=== PATIENT | male | born 1955 | race Caucasian/White ===

== ENCOUNTER 2021-11-17 19:41 | Inpatient (IN) | payer MEDICARE, OTHER ==
[~2021-11-17] VITALS: Ht 172.7 cm; Wt 85.9 kg
[~2021-11-17 19:41] MED LIST: ASP325T PO; NAPR-243 PO; SULF1TAB38 PO
[2021-11-17] MEDS ORDERED: polyethylene glycoL POWDER 17 GM (MIRALAX) PACK PO PRN (20:00)
[2021-11-17] MEDS ORDERED: NALOXONE 0.4 MG/ML 1 ML (NARCAN) VIAL IV PRN (20:00)
[2021-11-17] MEDS ORDERED: LACTULOSE SYRUP 10GM/15ML (ENULOSE) 30ML UDC PO PRN (20:00)
[2021-11-17] MEDS ORDERED: ACETAMINOPHEN 325 MG TABLET PO PRN (20:00)
[2021-11-17] MEDS ORDERED: ONDANSETRON 4 MG (ZOFRAN) ORAL DISSOLVE TAB PO PRN (20:00)
[2021-11-17] MEDS ORDERED: CALCIUM CARBONATE 500 MG (TUMS) TAB.CHEW PO PRN (20:00)
[2021-11-17] MEDS ORDERED: diphenhydrAMINE 25 MG TAB (BENADRYL) PO PRN (20:00)
[2021-11-17] MEDS ORDERED: BISACODYL 10 MG SUPP (DULCOLAX) PR PRN (20:00)
[2021-11-17] MEDS ORDERED: ONDANSETRON 4 MG/2 ML (SDV) Z0FRAN IV PRN (20:00)
[2021-11-17] MEDS ORDERED: MILK OF MAGNESIA 400 MG/5 ML 30 ML UDC PO PRN (20:00)
[2021-11-17] MEDS ORDERED: diphenhydrAMINE 50 MG/ML INJ (BENADRYL) IVP PRN (20:00)
[2021-11-17] MEDS ORDERED: MELATONIN 3 MG TABLET PO PRN (20:00)
[2021-11-17] MEDS ORDERED: morphine INJ 4 MG/ML 1 ML (VIAL/SYRINGE) IV PRN (20:00)
[2021-11-17] MEDS ORDERED: ANTACID SUSP 30 ML UDC (MYLANTA) PO PRN (20:00)
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
--- OUTSIDE RECORDS SUMMARY | 2021-11-17 21:05 | XMS REPORT | Clinical Summary ---
Author Author [facility] Organization [facility] Address Unknown Phone Unavailable Care Team Providers Care Screen Printing Inspector Name Role Phone Unknown, Unknown Md PCP Unavailable Source Comments Some departments are not documenting in the electronic medical record. If you d o not see the information that you expected, contact Release of Information in [facility] [employer] Information Management department at [phone] for further assistan ce in locating additional records.[facility] Allergies Comments Active Allergy Reactions Severity Noted Date Sulfa (Sulfonamide RASH Medium 05/05/2016 Antibiotics) Medications End Date Status Medication Sig Dispensed Refills Start Date Active meloxicam (MOBIC) 15 mg Take 15 mg by 0 tablet mouth daily. Active lisinopril (PRINIVIL; Take 10 mg by 0 ZESTRIL) 10 mg tablet mouth daily. Active Problems Problem Noted Date Charcot's joint of left foot 05/06/2016 Surgical History Surgery Date Site/Laterality Comments HERNIA REPAIR Medical History Medical History Date Comments Arthritis Family History Medical History Relation Name Comments Cancer Father Arthritis-rheumatoid Mother Hip Fracture Mother Relation Name Status Comments Father Mother Social History Date Tobacco Use Types Packs/Day Years Used Never Smoker Comments Alcohol Use Standard Drinks/Week No 0 (1 standard drink = 0.6 o z pure alcohol) Sex Assigned at Date Recorded Not on file Obstetrics History Last Filed Vital Signs Reading Time Taken Comments Vital Sign 133/76 05/05/2016 12:49 PM [employer]ORE [employer] Blood Pressure 59 05/05/2016 12:49 PM GORE MAKER Pulse - - Temperature - - Respiratory Rate - - Oxygen Saturation - - Inhaled Oxygen Concentration 79.8 kg (176 lb) 05/05/2016 12:49 PM GORE MAKER Weight 172.7 cm (5' 8") 05/05/2016 12:49 PM GORE MAKER Height 26.76 05/05/2016 12:49 PM GORE MAKER Body Mass Index Plan of Treatment Health Maintenance Due Date Last Done Comments COVID-19 VACCINE (1) 1959 DTAP/TDAP VACCINES (1 - 1972 Tdap) HEPATITIS C SCREENING 1972 PHYSICAL (COMPREHENSIVE) 1972 EXAM COLORECTAL CANCER 2004 SCREENING SHINGLES RECOMBINANT 2004 VACCINE (1 of 2) PNEUMONIA (PPSV23) 2019 VACCINE (1 - PCV) INFLUENZA VACCINE 04/28/2022 Results Not on filefrom Last 3 Months Insurance Type Payer Benefit Subscriber ID Effective Phone Address Plan / Dates Group PPO BCBS [facility] [id number] 2015-P [phone] [id number] [address] [address] (Home) [place] [phone] Advance Directives Patient Sales Development Manager Explanation Type Date Recorded Advance 05/05/2016 1:25 PM Directive/DPOA Care Teams Start Date End Date Screen Printing Inspector Relationship Specialty 05/05/16 Unknown, Unknown, PCP - General
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
[2021-11-17] MEDS ORDERED: RT-ALBUTEROL SULF 2.5 MG/3 ML PRE-MIX VIAL INH PRN (21:30)
[2021-11-17] MEDS ORDERED: hydrALAZINE (APESOLINE) 20 MG/ML VIAL IV ONE (21:30)
[2021-11-17 21:41] LABS: BASOPHILS % (AUTO) 0 % (0-10); EOSINOPHILS # (AUTO) 0.1 10^3/uL (0.0-0.3); EOSINOPHILS % (AUTO) 0 % (0-10); HEMATOCRIT 44 % (40-54); HEMOGLOBIN 14.8 g/dL (13.3-17.7); LYMPHOCYTES # (AUTO) 1.2 10^3/uL (1.0-4.0); LYMPHOCYTES % (AUTO) 9 % (12-44); MEAN CORPUSCULAR HEMOGLOBIN 30 pg (25-34); MEAN CORPUSCULAR HGB CONC 34 g/dL (32-36); MEAN CORPUSCULAR VOLUME 89 fL (80-99); MEAN PLATELET VOLUME 9.6 fL (9.0-12.2); MONOCYTES # (AUTO) 0.7 10^3/uL (0.0-1.0); MONOCYTES % (AUTO) 5 % (0-12); NEUTROPHILS # (AUTO) 11.4 10^3/uL (1.8-7.8); NEUTROPHILS % (AUTO) 85 % (42-75); PLATELET COUNT 207 10^3/uL (130-400); WHITE BLOOD COUNT 13.3 10^3/uL (4.3-11.0)
[2021-11-17 21:55] LABS: ALBUMIN 3.9 GM/DL (3.2-4.5); POTASSIUM 3.6 MMOL/L (3.6-5.0)
[2021-11-17 21:57] LABS: CALCIUM 9.1 MG/DL (8.5-10.1)
[2021-11-17 21:58] LABS: TOTAL PROTEIN 7.2 GM/DL (6.4-8.2)
[2021-11-17 22:00] LABS: BILIRUBIN,TOTAL 0.4 MG/DL (0.1-1.0)
[2021-11-17] MEDS ORDERED: PIPERACILLIN SODIUM/TAZOBACTAM 4.5 GM in NS (IVPB) 100 ML IV ONE (22:00)
[2021-11-17 22:01] LABS: CREATININE SERUM 0.75 MG/DL (0.60-1.30)
[2021-11-17] MEDS: RT-ALBUTEROL SULF 2.5 MG/3 ML PRE-MIX VIAL INH SCH (22:25)
[2021-11-17] MEDS: DOCUSATE SODIUM 100 MG (COLACE) CAP PO SCH (22:42)
[2021-11-17] MEDS: SENNOSIDES 8.6 MG (SENOKOT) TAB PO SCH (22:42)
[2021-11-17] MEDS: PANTOPRAZOLE 40 MG (PROTONIX) VIAL IV SCH (23:05)
[2021-11-17] MEDS: NS IV 1000 ML 1,000 ML IV SCH (23:05)
[2021-11-18 00:04] LABS: PROTHROMBIN TIME PATIENT 22.8 SEC (12.2-14.7)
[2021-11-18] MEDS: RT-ALBUTEROL SULF 2.5 MG/3 ML PRE-MIX VIAL INH SCH ×6 (02:47→22:22)
[2021-11-18] MEDS: PIPERACILLIN SODIUM/TAZOBACTAM 4.5 GM in NS (IVPB) 100 ML IV SCH ×3 (04:32→20:38)
[2021-11-18 04:40] LABS: BASOPHILS % (AUTO) 0 % (0-10); EOSINOPHILS % (AUTO) 0 % (0-10); HEMATOCRIT 41 % (40-54); HEMOGLOBIN 13.6 g/dL (13.3-17.7); LYMPHOCYTES # (AUTO) 0.9 10^3/uL (1.0-4.0); LYMPHOCYTES % (AUTO) 8 % (12-44); MEAN CORPUSCULAR HEMOGLOBIN 30 pg (25-34); MEAN CORPUSCULAR HGB CONC 33 g/dL (32-36); MEAN CORPUSCULAR VOLUME 90 fL (80-99); MEAN PLATELET VOLUME 10.1 fL (9.0-12.2); MONOCYTES # (AUTO) 0.8 10^3/uL (0.0-1.0); MONOCYTES % (AUTO) 6 % (0-12); NEUTROPHILS # (AUTO) 10.4 10^3/uL (1.8-7.8); NEUTROPHILS % (AUTO) 85 % (42-75); PLATELET COUNT 191 10^3/uL (130-400); WHITE BLOOD COUNT 12.2 10^3/uL (4.3-11.0)
[2021-11-18 04:49] LABS: ALBUMIN 3.5 GM/DL (3.2-4.5); POTASSIUM 3.8 MMOL/L (3.6-5.0)
[2021-11-18 04:51] LABS: CALCIUM 8.7 MG/DL (8.5-10.1)
[2021-11-18 04:52] LABS: TOTAL PROTEIN 6.5 GM/DL (6.4-8.2)
[2021-11-18 04:54] LABS: BILIRUBIN,TOTAL 0.5 MG/DL (0.1-1.0)
[2021-11-18 04:55] LABS: PHOSPHORUS 3.7 MG/DL (2.3-4.7)
[2021-11-18 04:56] LABS: CREATININE SERUM 0.92 MG/DL (0.60-1.30)
[2021-11-18 05:11] LABS: ANISOCYTOSIS SLIGHT; LYMPHOCYTES % (MANUAL) 7 %; MONOCYTES % (MANUAL) 7 %; NEUTROPHILS % (MANUAL) 86 %
[2021-11-18] MEDS ORDERED: MAGNESIUM 1 GM/100 ML IVPB 100 ML IV SCH (06:00)
[2021-11-18] MEDS ORDERED: POTASSIUM CL 10MEQ/50ML IVPB 50 ML IV SCH (06:00)
[2021-11-18] MEDS ORDERED: KCL 20 MEQ TAB (K-DUR) PO SCH (06:00)
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
[2021-11-18] MEDS: NS IV 1000 ML 1,000 ML IV SCH (07:55)
[2021-11-18] MEDS: DOCUSATE SODIUM 100 MG (COLACE) CAP PO SCH ×2 (07:55→20:22)
[2021-11-18] MEDS: SENNOSIDES 8.6 MG (SENOKOT) TAB PO SCH ×2 (07:56→20:22)
[2021-11-18] MEDS: PANTOPRAZOLE 40 MG (PROTONIX) VIAL IV SCH ×2 (08:06→20:38)
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
--- NOTE | 2021-11-18 10:34 | Occ Therapy Progress Note ---
Therapy Progress Note OT orders received, then cancelled due to transfer orders being processed. OT checked with pt's nurse who indicates pt is at PLOF, IND with ADLs, & per PT report, pt is independent with ambulation 300', no AD. No skilled OT services indicated at this time. If further OT services indicated, please send new orders. GALLO VILLALTA OT November 18, 2021 10:34
[2021-11-18] MEDS ORDERED: SIMV40TA25 PO (10:41)
[2021-11-18] MEDS ORDERED: METO-333 PO (10:41)
[2021-11-18] MEDS ORDERED: CELE-63 PO (10:41)
[2021-11-18] MEDS ORDERED: WARF-48 PO (10:41)
[2021-11-18 16:00] VITALS: BP 145/87
[2021-11-18] MEDS ORDERED: warFARin 5 MG (COUMADIN) TAB PO SCH (18:00)
[2021-11-18] MEDS: meTOprolol TARTRATE 25 MG (LOPRESSOR) TABLET PO SCH (18:41)
[2021-11-18 20:00] VITALS: BP 166/91
[2021-11-18] MEDS: CELECOXIB 100 MG (CeleBREX) CAP PO SCH (20:39)
[2021-11-18] MEDS ORDERED: SIMvastatin 40 MG (ZOCOR) TAB PO SCH (21:00)
[2021-11-19 00:37] VITALS: BP 124/73
[2021-11-19] MEDS: RT-ALBUTEROL SULF 2.5 MG/3 ML PRE-MIX VIAL INH SCH ×3 (02:37→10:28)
[2021-11-19] MEDS: PIPERACILLIN SODIUM/TAZOBACTAM 4.5 GM in NS (IVPB) 100 ML IV SCH (03:39)
[2021-11-19 03:40] VITALS: BP 117/73
[2021-11-19 05:29] LABS: BASOPHILS % (AUTO) 1 % (0-10); EOSINOPHILS # (AUTO) 0.2 10^3/uL (0.0-0.3); EOSINOPHILS % (AUTO) 3 % (0-10); HEMATOCRIT 38 % (40-54); HEMOGLOBIN 12.5 g/dL (13.3-17.7); LYMPHOCYTES # (AUTO) 1.3 10^3/uL (1.0-4.0); LYMPHOCYTES % (AUTO) 20 % (12-44); MEAN CORPUSCULAR HEMOGLOBIN 30 pg (25-34); MEAN CORPUSCULAR HGB CONC 33 g/dL (32-36); MEAN CORPUSCULAR VOLUME 92 fL (80-99); MEAN PLATELET VOLUME 9.7 fL (9.0-12.2); MONOCYTES # (AUTO) 0.6 10^3/uL (0.0-1.0); MONOCYTES % (AUTO) 9 % (0-12); NEUTROPHILS # (AUTO) 4.4 10^3/uL (1.8-7.8); NEUTROPHILS % (AUTO) 67 % (42-75); PLATELET COUNT 163 10^3/uL (130-400); WHITE BLOOD COUNT 6.6 10^3/uL (4.3-11.0)
[2021-11-19 05:48] LABS: ALBUMIN 3.3 GM/DL (3.2-4.5); POTASSIUM 3.6 MMOL/L (3.6-5.0)
[2021-11-19 05:49] LABS: CALCIUM 8.7 MG/DL (8.5-10.1)
[2021-11-19 05:50] LABS: TOTAL PROTEIN 6.1 GM/DL (6.4-8.2)
[2021-11-19 05:52] LABS: BILIRUBIN,TOTAL 0.7 MG/DL (0.1-1.0)
[2021-11-19 05:54] LABS: CREATININE SERUM 0.82 MG/DL (0.60-1.30)
[2021-11-19 06:02] LABS: INR 1.7 (0.8-1.4); PROTHROMBIN TIME PATIENT 20.3 SEC (12.2-14.7)
--- NOTE | 2021-11-19 07:47 | Diagnostic Imaging Report ---
INDICATION: Follow-up pneumonia. COMPARISON: 11/18/2021 FINDINGS: Single frontal radiographic view of the chest was obtained and shows stable cardiac silhouette and pulmonary vasculature. Sternotomy wires are again noted. Lungs show interval improved aeration. There is no focal consolidation, large effusion, nor pneumothorax. Osseous structures show no gross acute abnormalities. IMPRESSION: 1. No acute cardiopulmonary process is seen on today's study. Dictated by: Dictated on workstation # [id number]
[2021-11-19 08:20] VITALS: BP 180/95
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
[2021-11-19] MEDS ORDERED: PANTOPRAZOLE 40 MG (PROTONIX) TAB PO SCH (09:00)
[2021-11-19] MEDS ORDERED: PANT40TA52 PO (09:14)
[2021-11-19] MEDS ORDERED: AMOX1TAB12 PO (09:14)
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
[2021-11-19] MEDS: CELECOXIB 100 MG (CeleBREX) CAP PO SCH (09:20)
[2021-11-19] MEDS: meTOprolol TARTRATE 25 MG (LOPRESSOR) TABLET PO SCH (09:21)
[2021-11-19] MEDS: SENNOSIDES 8.6 MG (SENOKOT) TAB PO SCH (09:22)
[2021-11-19] MEDS: DOCUSATE SODIUM 100 MG (COLACE) CAP PO SCH (09:22)
[2021-11-19 11:18] VITALS: BP 167/85
[2021-11-19 11:55] VITALS: BP 167/85
== END 2021-11-19 11:53 | disposition home or self-care (01) | DRG 177 ==
LOC: ICU 21:00 → 4TH 11-18 12:57
PROVIDERS: ADMIT Internal Medicine; ATTEND Internal Medicine
DX: J69.8 Pneumonitis due to inhalation of other solids and liquids (principal); J96.21 Acute and chronic respiratory failure with hypoxia; I10 Essential (primary) hypertension; R73.9 Hyperglycemia, unspecified; Z79.01 Long term (current) use of anticoagulants; Z95.2 Presence of prosthetic heart valve; Z79.1 Long term (current) use of non-steroidal anti-inflammatories (NSAID); Z79.82 Long term (current) use of aspirin; Z79.899 Other long term (current) drug therapy; V90.02XA Drowning and submersion due to fishing boat overturning, initial encounter; Y93.79 Activity, other specified sports and athletics; Y92.64 Mine or pit as the place of occurrence of the external cause
CPT/HCPCS: 36415; 71045; 80053; 83605; 83735; 84100; 85007; 85025; 85027; 85610; 87040; 87081; 93306; 94640; 94664

== ENCOUNTER → 2021-11-25 | Outpatient (CLI) | payer MEDICARE, OTHER ==
[~2021-11-25] MED LIST changes: +AMOX1TAB12 PO; +CELE-63 PO; +METO-333 PO; +PANT40TA52 PO; +SIMV40TA25 PO; +WARF-48 PO
[2021-11-25 09:54] LABS: INR 1.6 (0.8-1.4); PROTHROMBIN TIME PATIENT 19.6 SEC (12.2-14.7)
== END ==
LOC: LAB 09:22
PROVIDERS: ATTEND Internal Medicine
DX: Z79.01 Long term (current) use of anticoagulants (principal)
CPT/HCPCS: 36415; 85610